=== PATIENT | male | born 1990 | race Caucasian/White ===

== ENCOUNTER 2024-07-03 18:40 | Observation (INO) | payer OTHER, SELFPAY ==
[2024-07-03] VITALS (12 sets, daily range): BP systolic 116–126; BP diastolic 61–98; PULSE 68–98; RESP 16; TEMP 36.6–38.2; O2SAT 94–100; BMI 24.9
--- NOTE | 2024-07-03 18:57 | CT_ITS ---
STUDY: CT ABDOMEN AND PELVIS WITH CONTRAST REASON FOR EXAM: Male, 33 years old. Right lower quadrant pain RADIATION DOSAGE (If Supplied By Facility): CTDIvol = ( 12.39 ) mGy, DLP = ( 763.24 ) mGycm TECHNIQUE: Transaxial images were obtained from the dome of the diaphragm to the symphysis pubis without oral contrast. IV 100mL Isovue-370 was administered. Sagittal and coronal images were reconstructed. Individualized dose optimization techniques were used for this CT. COMPARISON: None. FINDINGS: The visualized lung bases are unremarkable. The visualized portions of the heart are within normal limits. Normal liver. Normal gallbladder and extrahepatic biliary system. Normal spleen. Normal pancreas. Normal bilateral adrenal glands. Normal right kidney. Normal left kidney. Normal visualized stomach. Mild nonspecific ileus . There is thickening of the cardona of the appendix with stranding in the periappendiceal fat consistent with acute appendicitis. There is no periappendiceal abscess observed. Normal abdominal aorta. Normal inferior vena cava. Normal retroperitoneum. Normal urinary bladder. Normal abdominal wall. Normal osseous structures. CT/Abdomen/Pelvis W IV Cont ONLY IMPRESSION: Findings consistent with acute appendicitis without periappendiceal abscess. Electronically Signed: Zackary Zayas MD at 19:33 EST ,
--- NOTE | 2024-07-03 18:57 | EDS_ITS ---
HPI HPI - GI History of Present Illness Chief Complaint: Abd Pain Narrative Narrative: 33-year-old male who denies significant past medical history presents with right lower quadrant abdominal pain. He may have had some discomfort yesterday evening. Today, throughout the day, his pain is gotten worse. However, it seems to be subsiding upon arrival to the emergency department. He states he felt feverish even last night. He denies any nausea or vomiting. No problems with bowel movements. No dysuria or hematuria. No exacerbating or alleviating factors. His pain is mainly in the right lower quadrant of his abdomen. He tried to take some herbal medication without relief of his symptoms. PFSH PFSH Allergy/AdvReac Type Severity Reaction Status Date / Time No Known Allergies Allergy Verified 07/03/24 18:41 Social History Smoking Status: Never smoker ROS ROS ED ROS Narrative Constitutional: Subjective fever, no chills. HEENT: No sore throat. No neck pain. No loss of vision. No rhinorrhea. Cardiovascular: No chest pain. No palpitations. No pedal edema. Respiratory: No cough, no shortness of breath. Abdominal: Right lower quadrant abdominal pain. No nausea. No vomiting. No problems with bowel movements, no diarrhea. Genitourinary: No dysuria. No hematuria. Musculoskeletal: No myalgias. No arthralgias. Neurologic: No headaches. No dizziness. No lightheadedness. Skin: No rash. No change in color. EXAM Physical Exam Narrative Exam Narrative: Elevated temperature of 100.8 ?F. Nontoxic-appearing. Cardiovascular examination reveals a regular rate and rhythm. Lungs are clear to auscultation bilaterally. Abdomen is soft with positive tenderness to palpation in the right lower quadrant of the abdomen. Negative Rovsing sign. Negative heel strike. No peritoneal signs. Positive bowel sounds. Neurological examination is nonfocal and nonlateralizing. Const Vital Signs: 07/03/24 18:42 07/03/24 18:44 07/03/24 19:44 Temperature 100.8 F H 100.8 F H 98.9 F Temperature Source Oral Oral Oral Pulse Rate 98 98 78 Respiratory Rate 16 16 16 Blood Pressure 126/68 H 126/68 H 126/69 H Blood Pressure Mean 87 87 88 Pulse Ox 97 97 98 Oxygen Delivery Method Room Air Room Air Room Air 07/03/24 20:00 07/03/24 21:00 Temperature 98.9 F 98 F Temperature Source Oral Oral Pulse Rate 69 68 Respiratory Rate 16 16 Blood Pressure 126/98 H 122/74 H Blood Pressure Mean 107 90 Pulse Ox 98 99 Oxygen Delivery Method Room Air MDM MDM MDM Narrative Medical decision making narrative: Differential diagnosis includes but not limited to acute appendicitis versus ureterolithiasis versus musculoskeletal abdominal pain versus diverticulitis. History and physical is not consistent with diverticulitis. I have a higher clinical suspicion for acute appendicitis. He declined any parenteral narcotic pain medications currently and stated that his pain was improving. Comprehensive workup was pursued. I do feel CT imaging is indicated to rule out acute appendicitis. I reviewed his laboratory work and he has slight leukocytosis of 12.6 with hemoglobin normal at 14.2, hematocrit 42.3. CMP is remarkable for glucose of 109 with normal anion gap of 6. LFTs are grossly unremarkable. Lipase normal at 19 so no evidence of pancreatitis. Urinalysis was obtained and is negative for infection or blood. I reviewed the radiology report of the CT of the abdomen and pelvis and he has an acute appendicitis without perforation or abscess. Patient was started on Zosyn. Repeat temperature without antipyretic shows that he has come down to 98.9. I discussed patient with Dr. Delvalle with general surgery for admission. In discussion with him, he will take him to the OR. Disposition is admit. Patient is in stable condition. History & Record Review Discussion w/independent historian: Patient Lab Data Attestation: I reviewed the patient's lab results. Labs: Laboratory Results - last 24 hr 07/03/24 07/03/24 19:00 19:38 WBC 12.6 H RBC 4.67 Hgb 14.2 Hct 42.3 MCV 90.6 MCH 30.4 MCHC 33.6 RDW Std Deviation 43.8 RDW Coeff of Hal 13.2 Plt Count 188 MPV 10.8 Immature Gran % (Auto) 0.200 Neut % (Auto) 77.4 H Lymph % (Auto) 9.8 L [place] % (Auto) 7.8 Eos % (Auto) 4.5 Baso % (Auto) 0.3 Absolute Neuts (auto) 9.7 H Absolute Lymphs (auto) 1.23 Nucleated RBC % 0 Sodium 138 Potassium 3.7 Chloride 104 Carbon Dioxide 28.0 Anion Gap 6 BUN 12 Creatinine 1.15 Estim Creat Clear Calc 107.22 Est GFR (MDRD) Af Amer 94 Est GFR (MDRD) Non-Af 78 BUN/Creatinine Ratio 10.4 Glucose 109 H Calcium 9.1 Total Bilirubin 0.70 AST 16 ALT 37 Alkaline Phosphatase 58 Total Protein 7.5 Albumin 3.9 Globulin 3.6 Albumin/Globulin Ratio 1.1 Lipase 19 Urine Color Yellow Urine Clarity Clear Urine pH 8.0 Ur Specific [place] 1.015 Urine Protein Negative Urine Glucose (UA) Normal Urine Ketones Negative Urine Occult Blood Negative Urine Nitrite Negative Urine Bilirubin Negative Urine Urobilinogen Normal Ur Leukocyte Esterase Negative Urine RBC 0 SEEN Urine WBC 0 SEEN Ur Squamous Epith Cells 0 SEEN Urine Bacteria 0 SEEN Urine Mucus 0 SEEN Radiography Diagnostic Testing: Clinical Impression(s) from Imaging Studies Abdomen/Pelvis CT 07/03/24 18:57 IMPRESSION: Findings consistent with acute appendicitis without periappendiceal abscess. Electronically Signed: Zackary Zayas MD at 19:33 EST Reading Location ID and State: [facility] / [place] Tel , Service support , Management Discussion w/another healthcare provider: Vice President Of Operations (Dr. Laz Delvalle, general surgery) Discharge Plan Dx/Rx/DC Orders Clinical Impression: Acute appendicitis, RLQ abdominal pain, Fever Disposition Disposition: Acute Care Hospital [facility]
[2024-07-03 19:09] LABS: Absolute Lymphocyte Count 1.23 X10^3/uL (0.83-4.51); Absolute Neutrophil Count 9.7 X10^3/uL (2.0-7.7); Basophil# 0.04 X10^3/uL; Basophil% 0.3 % (0-1); Eosinophil# 0.57 X10^3/uL; Eosinophils% 4.5 % (0-5); Hematocrit 42.3 % (40-54); Hemoglobin 14.2 g/dL (13.0-16.5); Lymphocyte # 1.23 X10^3/ul (0.83-4.51); Lymphocyte % 9.8 % (19-41); Mean Corp Hgb Conc 33.6 g/dL (32-36); Mean Corpuscular Hgb 30.4 pg (27.0-32.0); Mean Corpuscular Volume 90.6 fL (80-94); Mean Platelet Vol. 10.8 fl (6.2-12.0); Monocyte# 0.98 X10^3/uL; Monocyte% 7.8 % (0-10); NRBC Flagged by Analyzer 0 % (0-5); Neutrophil # 9.73 X10^3/uL (2.7-7.7); Neutrophil % 77.4 % (47-70); Platelet Count 188 K/mm3 (150-450); RBC Distribution Width CV 13.2 % (11.6-14.6); RBC Distribution Width SD 43.8 fl (35.1-43.9); Red Blood Count 4.67 M/mm3 (4.6-6.2); White Blood Count 12.6 K/mm3 (4.4-11.0)
[2024-07-03 19:25] LABS: ALB/GLOB Ratio 1.1 RATIO (0.9-2.4); AST(SGOT) 16 U/L (15-37); Alanine Aminotransfer ALT/SGPT 37 U/L (16-61); Albumin, Serum 3.9 g/dL (3.2-5.0); Alkaline Phosphatase 58 U/L (45-117); Anion Gap 6 (5-15); BUN 12 mg/dL (7-18); BUN/Creat Ratio 10.4 RATIO (10-20); Calcium,Total 9.1 mg/dL (8.5-10.1); Chloride 104 mmol/L (98-107); Creatinine, Serum 1.15 mg/dL (0.70-1.30); EST Glomerular Filtration Rate 78 mL/min (>60); Est Glom Filt Rate - Afr Amer 94 mL/min (>60); Estimated Creatinine Clearance 107.22 ml/min; Globulin 3.6 g/dL (2.2-4.2); Glucose 109 mg/dL (74-106); Lipase 19 U/L (13-75); Potassium 3.7 mmol/L (3.5-5.1); Protein, Total 7.5 g/dL (6.4-8.2); Sodium Level 138 mmol/L (136-145)
[2024-07-03 19:41] LABS: Bacteria 0 SEEN /hpf (None Seen); Mucous, Urine 0 SEEN /hpf (<or=2+); Red Blood Cells-Urine 0 SEEN /hpf (0-5); Squamous Epithelial Cells - UA 0 SEEN /hpf (0-5); White Blood Cells 0 SEEN /hpf (0-5)
[2024-07-03 19:46] LABS: Color, Urine Yellow (Yellow); Glucose, Dipstick Normal (Normal); Ketone-Dipstick Negative (Negative); Leukocyte Esterase-Dipstick Negative /ul (Negative); Nitrite-Dipstick Negative (Negative); Occult Blood-Urine Negative /ul (Negative); Protein-Dipstick Negative (Negative); Specific Gravity, Urine 1.015 (1.002-1.030); Urine Bilirubin Dipstick Negative (Negative); Urine Clarity Clear (Clear); Urine Urobilinogen Normal (Normal)
[2024-07-03] MEDS: Piperacil/Tazobactam 3.375 GM in 0.9% Normal Saline (50mL MB+) 50 ML IV (20:35)
--- NOTE | 2024-07-03 21:17 | PCM.HP.STD ---
HPI - General General Date of Admission: 07/03/24 Date of Service: 07/03/24 Chief Complaint: Acute onset abdominal pain HPI Narrative PAMELA HERMAN, is a 33 M who presents to [facility] with complaints of acute onset abdominal pain that began last evening. He shares that it was just mild in intensity yesterday but became progressive today. He shares also that it remained always in the right lower quadrant and was of a quality is never previously experienced. He describes some associated nausea but no vomiting. He also has experienced some low-grade fevers. He denies any awareness of sick contacts at home. He confirms that his bowel activity has been unremarkable. Patient's ER workup is notable for CBC that shows mild leukocytosis of 12.6. CT imaging of the abdomen pelvis shows evidence of acute appendicitis without periappendiceal abscess. Patient denies any past medical history and his only past surgical history was excision of a salivary gland on the left. PFSH Allergy/AdvReac Type Severity Reaction Status Date / Time No Known Allergies Allergy Verified 07/03/24 18:41 Social History Smoking Status: Never smoker Vital Signs Vital Signs Vital Signs: 07/03/24 18:42 07/03/24 18:44 07/03/24 19:44 Temperature 100.8 F H 100.8 F H 98.9 F Temperature Source Oral Oral Oral Pulse Rate 98 98 78 Respiratory Rate 16 16 16 Blood Pressure 126/68 H 126/68 H 126/69 H Blood Pressure Mean 87 87 88 Pulse Ox 97 97 98 Oxygen Delivery Method Room Air Room Air Room Air 07/03/24 20:00 07/03/24 21:00 Temperature 98.9 F 98 F Temperature Source Oral Oral Pulse Rate 69 68 Respiratory Rate 16 16 Blood Pressure 126/98 H 122/74 H Blood Pressure Mean 107 90 Pulse Ox 98 99 Oxygen Delivery Method Room Air Weight Weight: 194 lb Body Mass Index (BMI) 24.9 Physical Exam Const alert, oriented x3 and no apparent distress Resp normal respiratory effort GI GI Narrative: Nondistended, soft, tender to palpation over McBurney's point, positive Rovsing and psoas sign. Negative obturator sign Results Lab / Micro Data 07/03/24 19:00 07/03/24 19:00 Labs: Laboratory Results - last 24 hr 07/03/24 19:00: WBC 12.6 H, RBC 4.67, Hgb 14.2, Hct 42.3, MCV 90.6, MCH 30.4, MCHC 33.6, RDW Std Deviation 43.8, RDW Coeff of Hal 13.2, Plt Count 188, MPV 10.8, Immature Gran % (Auto) 0.200, Neut % (Auto) 77.4 H, Lymph % (Auto) 9.8 L, [place] % (Auto) 7.8, Eos % (Auto) 4.5, Baso % (Auto) 0.3, Absolute Neuts (auto) 9.7 H, Absolute Lymphs (auto) 1.23, Nucleated RBC % 0, Sodium 138, Potassium 3.7, Chloride 104, Carbon Dioxide 28.0, Anion Gap 6, BUN 12, Creatinine 1.15, Estim Creat Clear Calc 107.22, Est GFR (MDRD) Af Amer 94, Est GFR (MDRD) Non-Af 78, BUN/Creatinine Ratio 10.4, Glucose 109 H, Calcium 9.1, Total Bilirubin 0.70, AST 16, ALT 37, Alkaline Phosphatase 58, Total Protein 7.5, Albumin 3.9, Globulin 3.6, Albumin/Globulin Ratio 1.1, Lipase 19 07/03/24 19:38: Urine Color Yellow, Urine Clarity Clear, Urine pH 8.0, Ur Specific [place] 1.015, Urine Protein Negative, Urine Glucose (UA) Normal, Urine Ketones Negative, Urine Occult Blood Negative, Urine Nitrite Negative, Urine Bilirubin Negative, Urine Urobilinogen Normal, Ur Leukocyte Esterase Negative, Urine RBC 0 SEEN, Urine WBC 0 SEEN, Ur Squamous Epith Cells 0 SEEN, Urine Bacteria 0 SEEN, Urine Mucus 0 SEEN Imaging Radiology Impression Abdomen/Pelvis CT 07/03/24 18:57 IMPRESSION: Findings consistent with acute appendicitis without periappendiceal abscess. Electronically Signed: Zackary Zayas MD at 19:33 EST Reading Location ID and State: [facility] / [place] Tel , Service support , Assessment & Plan Assessment/Plan (1) Acute appendicitis: PLAN: Patient is a 33-year-old male, otherwise healthy, who presents with approximately 24-hour history of localized right lower quadrant pain with associated nausea no associated precedent. Workup is consistent with acute appendicitis. Management of acute appendicitis was discussed with patient?including antibiotics only approach, however, I have recommended proceeding with surgical appendectomy given his apparent fitness for an operation and desire to avoid risk for recurrence. Thus the procedure was described in detail as well as the postoperative recovery expectations. Given the late hour of patient's presentation we will plan to admit patient to observation following the procedure. Operating room and anesthesia has been notified. Will proceed to the OR from the emergency department. Laz Delvalle MD General Surgery Endocrine Surgery Pager: [facility] [address] [place] [address], [address] [place] [address] Office: [phone] Charges/Coding Visit Charges Inpatient E&M: [id number] [facility]
--- NOTE | 2024-07-03 22:01 | PCM.PRE.AN2 ---
ASA Classification* ASA Classification ASA Classification: 2 Assessment & Plan Anesthesia* Anesthesia Assessment Anesthesia Assessment: Discussed sedation and/or anesthesia options, risks, benefits, and alternatives with patient/parents/legal guardian/POA. Questions invited. The patient/parents/legal guardian/POA seems to understand and agrees to proceed with anesthesia plan. Reviewed the physical assessment, medical history, allergy history and patient home medications list prior to surgery/procedure/anesthetic and documented any changes. Performed airway and anesthesia risk assessments. Anesthesia Type Anesthesia Type: General Anesthesia Focused Assessment* Temperature: 98 F Pulse Rate: 68 Blood Pressure: 122/74 Respiratory Rate: 16 Pulse Ox: 99 Airway Assessment Mouth opens: >3 cm Mallampati Score: II Focused Labs Anesthesia Preop lab: CBC WBC 12.6 K/mm3 (4.4-11.0) H 07/03/24 19:00 RBC 4.67 M/mm3 (4.6-6.2) 07/03/24 19:00 Hgb 14.2 g/dL (13.0-16.5) 07/03/24 19:00 Hct 42.3 % (40-54) 07/03/24 19:00 Plt Count 188 K/mm3 (150-450) 07/03/24 19:00 CHEMISTRY Potassium 3.7 mmol/L (3.5-5.1) 07/03/24 19:00 Sodium 138 mmol/L (136-145) 07/03/24 19:00 BUN 12 mg/dL (7-18) 07/03/24 19:00 Creatinine 1.15 mg/dL (0.70-1.30) 07/03/24 19:00 Glucose 109 mg/dL (74-106) H 07/03/24 19:00 COAG Pre-Assessment Diagnosis/Proposed Procedure Planned Operative Procedure(s): laproscopic appendectomy Anesthesia History 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 When Was Last Pacemaker Check QUESTION #4 FULL TEXT: You/Your Family Experience fever (hyperthermia) with Anesthesia Last Oral Intake Last Oral intake: Last Oral Intake NPO since 17:00 07/03/24 21:54 Meds taken in AM with sips of water? Meds patient instructed to take am of surgery PONV PONV - rock contractor: PONV - rock contractor Female HX of Motion Sickness HX of N/V After Surgery Non-Smoker Duration of Surgery greater than 60 minutes Number of Risk Factors PONV Score Height & Weight Height & Weight: Anesthesia: Height & Weight Height 6 ft 2 in 07/03/24 21:54 Weight: 87.997 kg 07/03/24 21:54 Body Mass Index (BMI) 24.9 07/03/24 21:54 Respiratory Assessment Respiratory Assessment - rock contractor: Respiratory Tract Infection Hx - rock contractor Hx Respiratory Tract Infection STOP Sleep Apnea STOP Sleep Apnea - rock contractor: STOP Sleep Apnea - rock contractor Hx Hypertension No 07/03/24 21:54 Hx Sleep Apnea No 07/03/24 21:54 CPAP BIPAP Do you snore loudly (louder No 07/03/24 21:54 than talking or can be heard Do you often feel tired/ No 07/03/24 21:54 fatigued/ sleepy during daytime? Has anyone observed you stop No 07/03/24 21:54 breathing during sleep? STOP Results Negative 07/03/24 21:54 QUESTION #5 FULL TEXT : Do you snore loudly (louder than talking or can be heard through closed doors)? 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 Specify any problems Hx of Preganancy in last 3 Months Nurse Filling Out Transfusion & Questions: Date: Time: Patient unable to answer at this time (ie. confused, unrespo /Reproduction History /Reproductive History - rock contractor: /Reproductive Hx- rock contractor Hx Now Gestational Age (in weeks): EDC: Hx Hx Para Hx Section SAB PFSH Allergy/AdvReac Type Severity Reaction Status Date / Time No Known Allergies Allergy Verified 07/03/24 18:41 Social History Smoking Status: Never smoker Review of Systems (Anesthesia) ROS Narrative System reviewed and no additional complaints, except as documented.
--- NOTE | 2024-07-03 22:50 | APP_PTH ---
PATIENT: PAMELA HERMAN LOC: [facility] U#:[id number] AGE/SX: 33/M ROOM: [facility]318 RE07/03/[address]: Dr. Laz Delvalle MD : 1990 BED: 1 DIS: 07/04/2024 SPEC #: [id number] RECD: 07/04/24 10:33 STATUS: BETH DEE #: [id number] JEREMY: 07/03/24 22:[address]: Laz Delvalle DEPT: SURGICAL PATHOLOGY RECD BY: Do Duarte ENTERED: 07/04/24 11:27 SP TYPE: APPENDIX OTHR DR: Silverio Escobar MD No Primary Care Phys Tissues: Appendix, NOS Procedures: Surgery Specimen Level III HEADER OPERATION: Laparoscopic appendectomy PRE-OP DIAGNOSIS: Acute appendicitis TISSUE SUBMITTED: Appendix MICROSCOPIC DIAGNOSIS Appendix, appendectomy: Acute appendicitis and periappendicitis. 07/05/2024 MICROSCOPIC DESCRIPTION Slides are reviewed. GROSS DESCRIPTION Received in fixative is one container labeled with the patient's name and designated appendix. The specimen consists of an appendix measuring 5.5 cm in length and up to 1.0 cm in diameter. The attached periappendiceal adipose tissue measures up to 1.0 cm in width. The serosa is congested. No obvious perforation is identified. Mucosa is also congested. The lumen is filled with fecal material. No fecalith is identified. Recordist Chief sections are submitted in one cassette. / SJ:mr 07/04/2024 TC:2 CPT: 99447
[2024-07-03] MEDS: Bupiv/Epi 0.25% 30 ML Vial (23:01)
--- NOTE | 2024-07-03 23:13 | OP.PCM_ITS ---
Procedures Digestive 40xxx-49xxx: 62120 Laparoscopy appendectomy Operative Report (Standard) Operative Information Date of Procedure: 07/03/24 Pre-Operative Diagnosis: Acute appendicitis Post-Operative Diagnosis: Acute uncomplicated appendicitis Surgery/Procedure Performed: Laparoscopic appendectomy congressional assistant: No Type of Anesthesia: General/Supplemental RN Documented Start/Stop Times: Operation Date: 07/03/24 22:50 Case Time Anesthesia Start 07/03/24 22:21 Into Room 07/03/24 22:21 Procedure Start 07/03/24 22:40 Procedure End 07/03/24 23:12 Procedure Start Time: 22:40 Procedure Stop Time: 23:12 Select all DRAINS/GRAFTS/IMPLANTS that apply: None Estimated Blood Loss: 5 Specimen collected: Yes Description of specimen(s) removed: Appendix Description of surgery: After appropriate identification in the preoperative holding area, the patient was brought to the operating room and placed supine on the operating room table. Antibiotics had been preoperatively administered by emergency medicine. Patient was then induced with general endotracheal anesthetic. The abdomen was prepped and draped in usual sterile fashion. Formal timeout was conducted to confirm both the patient and the procedure. A supraumbilical incision was made and carried down to the level of the fascia which was sharply opened. After opening the peritoneum in like fashion a finger sweep was made to confirm position, and a balloon trocar was placed and pneumoperitoneum was established to 15 mmHg. Patient was positioned in Trendelenburg with the left side down. Two additional 5 mm trocars were placed in the left lower quadrant and suprapubic positions. The peritoneum was inspected and there were no signs of inadvertent injury from this Flores entry. The appendix was visualized with mild acute inflammation. Using blunt laparoscopic dissection, a window was made in the mesoappendix adjacent to the appendiceal base. The mesoappendix was divided with application of a laparoscopic harmonic. Then the base of the appendix was sealed and amputated with the use of an Endo SANDY stapler. The appendix was placed in an Endo Catch bag. The staple line was inspected for hemostasis. After hemostasis was confirmed the appendix was removed from the umbilical port site. Some reactive serous fluid was suctioned free of the pelvis. Pneumoperitoneum was then evacuated and the supraumbilical port site fascia was closed with #1 Vicryl in a [id number] fashion. The port sites were infiltrated with 30 mL local anesthetic. The skin of each port site was closed with 4-0 Monocryl in a subcuticular fashion. Steri-Strips and OpSite dressings were applied. Patient tolerated procedure well without any apparent complications. They were awoken from general anesthetic without issue and transferred to post anesthesia care unit for ongoing recovery. Surgical Findings: ? Acute uncomplicated appendicitis ? Reactive simple fluid in the pelvis Complications Complications: No Admit VTE Documentation VTE Mechan Device Prophylaxis: SCD's
--- NOTE | 2024-07-03 23:21 | PCM.POST.ANE ---
Anesthesia: Postop Eval I Current Vital Signs Temperature: 98.6 F Pulse Rate: 97 Blood Pressure: 125/62 Respiratory Rate: 16 Pulse Ox: 94 Oxygen Delivery Method: Room Air Assessment Airway patent: Yes Spontaneous unlabored respirations: Yes Mental status: Awake and Calm nausea: No Vomiting: No Anesthesia Complication: No Fluid Hydration Crystalloid volume administer (ml): 800 Total IV fluid infused: 800 Progress Note Anesthesia document: Postop Eval 1 completed: Yes
--- NOTE | 2024-07-03 23:22 | PCM.POSTANE2 ---
Anesthesia Postop Eval I Sum Postop Eval Completion status Anesthesia document: Postop Eval 1 completed: Yes Anesthesia Postop Eval I Summary Anesthesia Postop Eval I Summary: Anesthesia Postop Eval I: Assessment Summary Airway patent Yes 07/03/24 23:22 Spontaneous unlabored Yes 07/03/24 23:22 respirations Mental status Awake,Calm 07/03/24 23:22 nausea No 07/03/24 23:22 Vomiting No 07/03/24 23:22 Anesthesia Postop Eval I: Fluid Summary Crystalloid volume administer 800 07/03/24 23:22 (ml) Colloids volume administered ( ml) Blood Product volume administered (ml) Total IV fluid infused 800 07/03/24 23:22 Anesthesia Postop Eval I: Summary Notes Anesthesia Complication No 07/03/24 23:22 Anesthesia Complication Comment: Post-operative progress note Anesthesia: Postop Eval II Evaluation Mental status: Awake and Calm Pain Level: 2 nausea: No Vomiting: No
[2024-07-04] VITALS (7 sets, daily range): BP systolic 104–118; BP diastolic 55–75; PULSE 51–89; RESP 16; TEMP 36.5–37.1; O2SAT 95–99; BMI 25.4
[2024-07-04] MEDS: oxyCODONE 5 MG Tablet PO ×3 (00:20→14:09)
[2024-07-04] MEDS: Ibuprofen 400 MG Tablet PO ×2 (00:20→05:09)
[2024-07-04 06:35] LABS: Absolute Lymphocyte Count 1.68 X10^3/uL (0.83-4.51); Absolute Neutrophil Count 5.9 X10^3/uL (2.0-7.7); Basophil# 0.05 X10^3/uL; Basophil% 0.6 % (0-1); Eosinophil# 0.47 X10^3/uL; Eosinophils% 5.2 % (0-5); Hemoglobin 12.3 g/dL (13.0-16.5); Lymphocyte # 1.68 X10^3/ul (0.83-4.51); Lymphocyte % 18.6 % (19-41); Mean Corp Hgb Conc 33.2 g/dL (32-36); Mean Corpuscular Hgb 30.3 pg (27.0-32.0); Mean Corpuscular Volume 91.1 fL (80-94); Mean Platelet Vol. 11.6 fl (6.2-12.0); Monocyte# 0.89 X10^3/uL; Monocyte% 9.9 % (0-10); NRBC Flagged by Analyzer 0 % (0-5); Neutrophil # 5.89 X10^3/uL (2.7-7.7); Neutrophil % 65.4 % (47-70); Platelet Count 172 K/mm3 (150-450); RBC Distribution Width CV 13.7 % (11.6-14.6); RBC Distribution Width SD 45.9 fl (35.1-43.9); Red Blood Count 4.06 M/mm3 (4.6-6.2)
--- NOTE | 2024-07-04 11:52 | PCM.POSTANE2 ---
Anesthesia Postop Eval I Sum Postop Eval Completion status Anesthesia document: Postop Eval 1 completed: Yes Anesthesia Postop Eval I Summary Anesthesia Postop Eval I Summary: Anesthesia Postop Eval I: Assessment Summary Airway patent Yes 07/03/24 23:22 Spontaneous unlabored Yes 07/03/24 23:22 respirations Mental status Awake,Calm 07/03/24 23:22 nausea No 07/03/24 23:22 Vomiting No 07/03/24 23:22 Anesthesia Postop Eval I: Fluid Summary Crystalloid volume administer 800 07/03/24 23:22 (ml) Colloids volume administered ( ml) Blood Product volume administered (ml) Total IV fluid infused 800 07/03/24 23:22 Anesthesia Postop Eval I: Summary Notes Anesthesia Complication No 07/03/24 23:22 Anesthesia Complication Comment: Post-operative progress note Anesthesia: Postop Eval II Evaluation Mental status: Awake and Calm Pain Level: 1 nausea: No Vomiting: No Complications Anesthesia Complication: No
--- NOTE | 2024-07-04 13:11 | PCM.DC ---
Discharge Instructions Diet Discharge Diet: No restrictions DC O2, CPAP, BIPAP needs Home O2 Discharge instructions: No Dressing / Incision Discharge Activity: May Not Drive (No driving while using narcotic pain medication) and May Shower (Postoperative day 1) May shower in (days): 1 Ice area for (Minutes): 20 Lifting Restrictions: No lifting greater than 15 pounds for 2 weeks after surgery Dressing / Incision Call your doctor if your incision/area has: Continuous Slow Oozing, Increased Pain/ Swelling, Increased Redness, Foul Smelling Discharge and Swelling at the incision site Call your doctor if you observe: Fever of 101 or Higher and Inability to urinate Remove Dressing in: 1 day (Please leave Steri-Strips intact until they fall off spontaneously or are taken off at your follow-up visit) Cleanse incision/area with: Soap & Water Follow Up Care Please Follow Up With: Laz Delvalle MD When: 7-10days postop Test Results: Test results from this visit will be discussed in further detail at your follow-up appointment, if applicable. Discharge Plan Admission Admit Date/Time: 07/03/24 22:04 Primary Reason for Your Visit: Appendectomy Attending Provider: Laz Delvalle Primary Care Provider: Care Physician,No Primary Discharge Orders/Prescriptions Prescriptions: New oxycodone 5 mg Tablet 5 mg PO Q6H PRN PRN (Reason: Pain Score 6-10) 3 Days Qty: 14 0RF Referrals / Follow Up: Care Physician,No Primary [Primary Care Provider] - NOT,DEFINED [Non-Staff] - Disposition Disposition (needs filled in before D/C Order can be placed): Home, Self Care
--- NOTE | 2024-07-04 13:15 | PCM.DC.SUM ---
Providers Date of Admission: 07/03/24 Primary Care Physician: No Primary Care Phys Reason For Visit: AUTE APPENDICITS Diagnosis Discharge Diagnosis (1) Acute appendicitis: Status: Acute Code(s): K35.80 - Unspecified acute appendicitis Plan: Patient is a 33-year-old male, otherwise healthy, who presents with approximately 24-hour history of localized right lower quadrant pain with associated nausea no associated precedent. Workup is consistent with acute appendicitis. Management of acute appendicitis was discussed with patient?including antibiotics only approach, however, I have recommended proceeding with surgical appendectomy given his apparent fitness for an operation and desire to avoid risk for recurrence. Thus the procedure was described in detail as well as the postoperative recovery expectations. Given the late hour of patient's presentation we will plan to admit patient to observation following the procedure. Operating room and anesthesia has been notified. Will proceed to the OR from the emergency department. Laz Delvalle MD General Surgery Endocrine Surgery Pager: [facility] [address] [place] [address], [address] [place] [phone] Office: [phone] Medications at Discharge Home Medications oxycodone 5 mg tablet 5 mg PO Q6H PRN PRN Pain Score 6-10 3 days #14 tabs 07/04/24 Hospital Course Operations appendectomy (Laparoscopic appendectomy) Procedures None Summary of Care Provided Hospital Course: Patient is a 33-year-old male who presented to [facility] ER on 07/03/2024 with complaints of progressive right lower quadrant pain and nausea. He is ultimately diagnosed with acute appendicitis and laparoscopic appendectomy was recommended. Patient provided his consent and the procedure was undertaken in emergent fashion the same evening. Procedure proceeded in an uncomplicated fashion but patient was admitted to the hospital floor postoperatively given the late hour. Patient's recovery went uneventfully until he experienced some initial urinary retention. However just prior to performing a straight catheterization for a registered bladder volume of over 450 mL patient experienced spontaneous voiding. Further, he tolerated advance to regular diet and his exam was appropriate. Given passage of these clinical benchmarks he was granted discharge to home with expectation for outpatient follow-up in the general surgery office. Physical Exam Const alert, oriented x3 and no apparent distress Constitutional Narrative: Initially anxious about possible catheterization General Appearance: cooperative Resp normal respiratory effort GI GI Narrative: Slight bloody drainage to patient's suprapubic port site?otherwise dressings are clean dry and intact. There is mild alena-incisional tenderness but no tenderness over the right lower quadrant. Weight / BMI Weight Weight: 198 lb Body Mass Index (BMI) 25.4 ABG / Lab / Microbiology Data 07/04/24 06:01 07/03/24 19:00 Laboratory: Laboratory Results - last 24 hr 07/03/24 19:00: WBC 12.6 H, RBC 4.67, Hgb 14.2, Hct 42.3, MCV 90.6, MCH 30.4, MCHC 33.6, RDW Std Deviation 43.8, RDW Coeff of Hal 13.2, Plt Count 188, MPV 10.8, Immature Gran % (Auto) 0.200, Neut % (Auto) 77.4 H, Lymph % (Auto) 9.8 L, [place] % (Auto) 7.8, Eos % (Auto) 4.5, Baso % (Auto) 0.3, Absolute Neuts (auto) 9.7 H, Absolute Lymphs (auto) 1.23, Nucleated RBC % 0, Sodium 138, Potassium 3.7, Chloride 104, Carbon Dioxide 28.0, Anion Gap 6, BUN 12, Creatinine 1.15, Estim Creat Clear Calc 107.22, Est GFR (MDRD) Af Amer 94, Est GFR (MDRD) Non-Af 78, BUN/Creatinine Ratio 10.4, Glucose 109 H, Calcium 9.1, Total Bilirubin 0.70, AST 16, ALT 37, Alkaline Phosphatase 58, Total Protein 7.5, Albumin 3.9, Globulin 3.6, Albumin/Globulin Ratio 1.1, Lipase 19 07/03/24 19:38: Urine Color Yellow, Urine Clarity Clear, Urine pH 8.0, Ur Specific [place] 1.015, Urine Protein Negative, Urine Glucose (UA) Normal, Urine Ketones Negative, Urine Occult Blood Negative, Urine Nitrite Negative, Urine Bilirubin Negative, Urine Urobilinogen Normal, Ur Leukocyte Esterase Negative, Urine RBC 0 SEEN, Urine WBC 0 SEEN, Ur Squamous Epith Cells 0 SEEN, Urine Bacteria 0 SEEN, Urine Mucus 0 SEEN 07/04/24 06:01: WBC 9.0, RBC 4.06 L, Hgb 12.3 L, Hct 37.0 L, MCV 91.1, MCH 30.3, MCHC 33.2, RDW Std Deviation 45.9 H, RDW Coeff of Hal 13.7, Plt Count 172, MPV 11.6, Immature Gran % (Auto) 0.300, Neut % (Auto) 65.4, Lymph % (Auto) 18.6 L, [place] % (Auto) 9.9, Eos % (Auto) 5.2 H, Baso % (Auto) 0.6, Absolute Neuts (auto) 5.9, Absolute Lymphs (auto) 1.68, Nucleated RBC % 0 Radiography Diagnostic Testing: Radiology Impression Abdomen/Pelvis CT 07/03/24 18:57 IMPRESSION: Findings consistent with acute appendicitis without periappendiceal abscess. Electronically Signed: Zackary Zayas MD at 19:33 EST Reading Location ID and State: [address] [place] [address] Tel , Service support , D/C Instructions Discharge Diet: No restrictions May shower in (days): 1 Ice area for (Minutes): 20 Call your doctor if your incision/area has: Continuous Slow Oozing, Increased Pain/ Swelling, Increased Redness, Foul Smelling Discharge and Swelling at the incision site Call your doctor if you observe: Fever of 101 or Higher and Inability to urinate Cleanse incision/area with: Soap & Water DC O2, CPAP, BIPAP Needs Home O2 Discharge instructions: No Please Follow Up With: Laz Delvalle MD When: 7-10days postop Meaningful Use Info Meaningful Use Meaningful Use Diagnoses (Choose all that apply): None applicable Ischemic Stroke Statin Dosing Therapy Reference: STATIN DOSE THERAPY REFERENCE: * Patients > 75 years receive moderate or high dose statin therapy. * Patients 75 years or YOUNGER should receive HIGH intensity statin dose unless contraindicated. You will be required to document reason for non-treatment if statin daily dose does not meet guidelines. HIGH DOSE STATIN THERAPY DAILY Atorvastatin > than or = to 40 mg Rosuvastatin > than or = to 20 mg Amlodipine + Atorvastatin > than or = to 2.5/40 mg Ezetimibe + Simvastatin 10/80 mg Simvastatin 80mg Discharge Plan Admission Admit Date/Time: 07/03/24 22:04 Primary Reason for Your Visit: Appendectomy Attending Provider: Laz Delvalle Primary Care Provider: Care Physician,No Primary Discharge Orders/Prescriptions Prescriptions: New oxycodone 5 mg Tablet 5 mg PO Q6H PRN PRN (Reason: Pain Score 6-10) 3 Days Qty: 14 0RF Referrals / Follow Up: Care Physician,No Primary [Primary Care Provider] - NOT,DEFINED [Non-Staff] - Disposition Disposition (needs filled in before D/C Order can be placed): Home, Self Care Charges/Coding Visit Charges Inpatient E&M: [id number] Disch Hosp
--- NOTE | 2024-07-04 13:57 | CASEMGMT ---
RN CM into pt room, pt denies any homegoing needs at this time. Provided pt with a local healthcare directory provider list. Pt denies needing any assistance with setting up PCP.
== END 2024-07-04 14:17 | disposition home or self-care (01) ==
LOC: ED 20:31 → ACINP 21:45 → MS3 22:17
PROVIDERS: Admitting Provider Surgery; Emergency Provider Emergency Medicine; Referring Provider Emergency Medicine; Visit Provider Surgery
PROC: 0DTJ4ZZ Resection of Appendix, Percutaneous Endoscopic Approach (ICD-10-PCS; CPT 44970; principal; 2024-07-03 22:30)
DX: K35.80 Unspecified acute appendicitis (principal); R33.9 Retention of urine, unspecified
CPT/HCPCS: 44970; 00840; 36415; 74177; 80053; 81001; 83690; 85025; 88304; 96365; 99221; 99284; Q9967; A4216; G0378; J2405